=== PATIENT | male | born 1975 | race Caucasian/White ===

== ENCOUNTER 2022-08-26 16:00 | Inpatient (IN) | payer MEDICARE, OTHER ==
[~2022-08-26] VITALS: Ht 172.7 cm; Wt 104.3 kg
--- NOTE | 2022-08-26 16:00 | NUR ---
BIBRA 89 FOR SUDDEN ONSET CHEST PAIN WHILE WORKING. 325 ASPIRIN AND NITRO X1 GIVEN FEDERAL APPELLATE CLERK WITH MINIMAL RELIEF. PT STATED THAT HIS PAIN WAS INITIALLY 9/10 NON RADIATING AND FELT PRESSURE/TIGHTNESS ON AND OFF AND CURRENTLY 7/10 PAIN. PT ATTACHED TO MONITOR. AWAITING MD ORDERS.
--- NOTE | 2022-08-26 16:18 | NUR ---
IV ESTABLISHED L AC 20G. LABS DRAWN AND SENT.
--- NOTE | 2022-08-26 16:21 | NUR ---
COVID TEST COLLECTED AND SENT
[2022-08-26 16:36] LABS: BASOPHILS # (AUTO) 0.1 K/uL (0.0-0.2); BASOPHILS % (AUTO) 0.6 % (0.0-2.0); EOSINOPHILS % (AUTO) 1.6 % (0.0-6.0); HEMATOCRIT 44 % (39-51); HEMOGLOBIN 14.3 g/dL (13.5-17.5); LYMPHOCYTES # (AUTO) 2.1 K/uL (0.8-4.8); LYMPHOCYTES % (AUTO) 21.2 % (20.0-44.0); MEAN CORPUSCULAR HGB CONC 33 g/dl (31.0-36.0); MEAN CORPUSCULAR VOLUME 88 fL (80-96); MONOCYTES # (AUTO) 0.7 K/uL (0.1-1.30); MONOCYTES % (AUTO) 6.7 % (2.0-12.0); NEUTROPHILS # (AUTO) 6.9 K/uL (1.8-8.9); NEUTROPHILS % (AUTO) 69.9 % (43.0-81.0); PLATELET COUNT (AUTO) 218 K/uL (150-450); RED BLOOD CELL COUNT(AUTO) 4.97 MIL/uL (4.5-6.0); WHITE BLOOD COUNT (AUTO) 9.9 K/uL (4.3-11.0)
[2022-08-26] MEDS ORDERED: FURO40TA5 PO (16:48)
[2022-08-26] MEDS ORDERED: DICL100G34 TD (16:48)
[2022-08-26] MEDS ORDERED: ATOR40TA PO (16:48)
[2022-08-26] MEDS ORDERED: IBUP-1955 PO (16:48)
[2022-08-26] MEDS ORDERED: LISI20TA30 PO (16:48)
[2022-08-26] MEDS ORDERED: DOXY100C2 PO (16:48)
[2022-08-26] MEDS ORDERED: APIX5TAB PO (16:48)
[2022-08-26 17:17] LABS: ALANINE AMINOTRANSFERASE 19 U/L (12-78); ALBUMIN 3.1 g/dL (3.4-5.0); ALKALINE PHOSPHATASE 64 U/L (46-116); ASPARTATE AMINOTRANSFERASE 24 U/L (15-37); BILIRUBIN,DIRECT 0.2 mg/dL (0.0-0.2); BILIRUBIN,TOTAL 0.7 mg/dL (0.2-1.0); CALCIUM, SERUM 8.6 mg/dL (8.5-10.1); CARBON DIOXIDE 26 mmol/L (21-32); CHLORIDE 102 mmol/L (98-107); CREATININE 1.5 mg/dL (0.6-1.3); GLUCOSE 84 mg/dL (74-106); POTASSIUM 3.6 mmol/L (3.5-5.1); SODIUM SERUM 138 mmol/L (136-145); UREA NITROGEN, BLOOD 28 mg/dL (7-18)
[2022-08-26] MEDS ORDERED: ASPIRIN 81 MG TAB.CHEW PO ONE (19:30)
[2022-08-26] MEDS ORDERED: NITROGLYCERIN PACKET 1 GM PACKET TD ONE (19:30)
[2022-08-26] MEDS ORDERED: NITROGLYCERIN PACKET 1 GM PACKET ONE (19:32)
[2022-08-26] MEDS ORDERED: ASPIRIN 81 MG TAB.CHEW ONE (19:32)
[2022-08-26] MEDS ORDERED: LIDOCAINE VISCOUS 2% UD 15 ML UDC ONE (19:48)
[2022-08-26] MEDS ORDERED: DEXTROSE 50%-WATER 50 ML DISP.SYRIN IV PRN (23:00)
[2022-08-26] MEDS ORDERED: ZOLPIDEM TARTRATE 5 MG TABLET PO PRN (23:00)
[2022-08-26] MEDS ORDERED: ACETAMINOPHEN 325 MG TABLET PO PRN (23:00)
[2022-08-26] MEDS ORDERED: MAG HYDROX/AL HYDROX/SIMETH 30 ML UDC PO PRN (23:00)
[2022-08-26] MEDS ORDERED: IV NS 0.9% 1,000 ML IV PRN (23:00)
[2022-08-26] MEDS ORDERED: Z GUARD REMEDY 4 OZ OINT TP PRN (23:00)
[2022-08-26] MEDS ORDERED: MAGNESIUM HYDROXIDE 30 ML UDC PO PRN (23:00)
[2022-08-26] MEDS ORDERED: hydrALAZINE HCL IV 20 MG VIAL IV PRN (23:00)
[2022-08-26] MEDS ORDERED: ONDANSETRON HCL/PF 4 MG/2 ML VIAL IVP PRN (23:00)
[2022-08-26] MEDS ORDERED: NITROGLYCERIN 0.4 MG/TAB BOTTLE SL ONE (23:30)
[2022-08-27] VITALS (7 sets, daily range): BP systolic 128–150; BP diastolic 75–99
--- NOTE | 2022-08-27 02:22 | NUR ---
REPORT GIVEN TO BRONWYN WHITE FOR BIN
--- NOTE | 2022-08-27 02:47 | NUR ---
PT TRANSFERRED TO ROOM 307-1 ON CARDIAC PER ACLS IN STABLE CONDITION
--- NOTE | 2022-08-27 02:50 | NUR ---
TELERN RECEIVED FROM ER VIA SANDOVAL A 46 Y/O MALE WITH DX OF CP WHILE WORKING [employer] BY HEADACHE. STATED NO CP SINCE HE WAS GIVEN NITRO AND ASA. NO SOB. TROP NEGATIVE, OTHER TEST NEGATIVE, PER ER WILL BE ADMITTED UNDER OBSERVATION BASED ON MEDICAL HISTORY. ORIENTED TO ROOM FACILITIES, APPEARS TO BE DEPRESSED.HAS LEFT SIDED WEAKNESS FROM OLD CVA, WOUNDS BOTH FEET AND LEFT UPPER THIGH. STATED SEES WOUND CLINIC AT [facility]. MARKED SUNBURNS ON FACE AND LEFT ARM STATED FROM HIS WORK. PROVIDED FOOD STATED TENDS TO BE HYPOGLYCEMIC CHECKED BLOOD SUGAR WAS 77. LATE SNACKS PROVIDED ATE FAIRLY. PRESENT IVF NS AT 75 CC/HR INFUSING WELL VIA LEFT AC. SAFETY PRECAUTIONS EMPHASIZED, CALL LIGHT USE REVIEWED WITH PATIENT WELL UNDERSTOOD. KEPT COMFORTABLE. BOTH FEET DRESSINGS CHANGED ELEVATED ON PILLOWS.SR ON THE MONITOR. CLOSELY WATCHED.
[2022-08-27 06:37] LABS: BASOPHILS % (AUTO) 0.6 % (0.0-2.0); EOSINOPHILS % (AUTO) 2.8 % (0.0-6.0); HEMATOCRIT 40 % (39-51); HEMOGLOBIN 13.3 g/dL (13.5-17.5); LYMPHOCYTES # (AUTO) 1.6 K/uL (0.8-4.8); LYMPHOCYTES % (AUTO) 23.2 % (20.0-44.0); MEAN CORPUSCULAR HGB CONC 34 g/dl (31.0-36.0); MEAN CORPUSCULAR VOLUME 87 fL (80-96); MONOCYTES # (AUTO) 0.5 K/uL (0.1-1.30); NEUTROPHILS # (AUTO) 4.6 K/uL (1.8-8.9); NEUTROPHILS % (AUTO) 66.4 % (43.0-81.0); PLATELET COUNT (AUTO) 192 K/uL (150-450); RED BLOOD CELL COUNT(AUTO) 4.54 MIL/uL (4.5-6.0); WHITE BLOOD COUNT (AUTO) 6.9 K/uL (4.3-11.0)
--- NOTE | 2022-08-27 06:50 | NUR ---
TELERN REMAINS SR ON THE MONITOR. CP FREE. PRESENT IVF INFUSING WELL. NO NEEDS FOR NOW. CONTINUED MONITORING.
--- NOTE | 2022-08-27 07:00 | NUR ---
SIDE GLUER OPENING NOTES RECEIVED PATIENT AWAKE IN BED, ON ROOM AIR NO S/S OF RESPIRATORY DISTRESS. A/Ox4, ABLE TO MAKE NEEDS KNOWN. ON TELE MONITORING SHOWING SINUS RHYTHM HR 70. NO COMPLAINT OF CHEST PAIN OR CARDIAC DISTRESS. IV ACCESS LAC #20G WITH NS RUNNING AT 75 ML/HR. INTACT AND PAPNET. AMB WITH STAND BY ASSIST, PATIENT IS CONTINENT USES URINAL. SKIN ISSUES: L UPPER THIGH ABRASION, FACIAL BURN, BILATERAL FOOT WOUNDS. SAFETY MEASURES IN PLACE: BED LOCKED AND IN LOWEST POSITION, HOB ELEVATED, SIDE RAILS UP x2, CALL LIGHT WITHIN REACH. WILL CONTINUE TO MONITOR.
[2022-08-27 07:27] LABS: THYROID STIMULATING HORMONE 1.035 uIU/mL (0.358-3.74)
[2022-08-27] MEDS: BLOOD SUGAR DIAGNOSTIC 1 EACH STRIP IN SCH ×4 (07:30→21:21)
[2022-08-27 07:36] LABS: CALCIUM, SERUM 8.2 mg/dL (8.5-10.1); CREATININE 1.2 mg/dL (0.6-1.3); MAGNESIUM 1.6 mg/dL (1.8-2.4); PHOSPHORUS 3.4 mg/dL (2.5-4.9); POTASSIUM 3.3 mmol/L (3.5-5.1)
[2022-08-27] MEDS: FUROSEMIDE 40 MG TABLET PO SCH (09:09)
[2022-08-27] MEDS: APIXABAN 5 MG TABLET PO SCH ×2 (09:09→16:36)
[2022-08-27] MEDS: ASPIRIN 81 MG TAB.CHEW PO SCH (09:11)
[2022-08-27] MEDS: PANTOPRAZOLE 40 MG VIAL IV SCH (09:12)
[2022-08-27] MEDS ORDERED: Magnesium 1GM/D5W 100ML PREMIX 100 ML IV SCH (10:00)
[2022-08-27] MEDS ORDERED: POTASSIUM CHLORIDE 20 MEQ TAB.PRT.SR PO ONE (10:00)
[2022-08-27] MEDS ORDERED: METOPROLOL TARTRATE 50 MG TABLET PO ONE (10:30)
[2022-08-27] MEDS ORDERED: MAGNESIUM OXIDE 400 MG TABLET PO ONE (11:00)
[2022-08-27] MEDS ORDERED: POTASSIUM CHLORIDE 20 MEQ TAB.PRT.SR PO SCH (11:00)
--- NOTE | 2022-08-27 11:30 | NUR ---
RN NOTES PATIENT LEFT FOR CTCA VIA WHEELCHAIR ACCOMPANIED BY ONE ENTRY OPERATOR.
[2022-08-27] MEDS ORDERED: IOHEXOL-350 100 ML VIAL IV ONE (11:48)
[2022-08-27] MEDS ORDERED: METOPROLOL TARTRATE INJ 5 MG/5 ML AMPUL ONE ×2 (11:48→12:20)
[2022-08-27] MEDS ORDERED: NITROGLYCERIN 0.4 MG/TAB BOTTLE ONE (11:48)
[2022-08-27] MEDS ORDERED: CT SWABBABLE VALVE TRANS SET 1 EA INFUS.SET MC ONE (11:48)
[2022-08-27] MEDS ORDERED: IV NS 0.9% 250 ML IV ONE (11:49)
[2022-08-27] MEDS: METOPROLOL TARTRATE INJ 5 MG/5 ML AMPUL IVP PRN ×6 (12:10→12:35)
[2022-08-27] MEDS ORDERED: NITROGLYCERIN 0.4 MG/TAB BOTTLE SL ONE (12:30)
--- NOTE | 2022-08-27 12:32 | NUR ---
AFTER GIVING MULTIPLE DOSE OF METROPOLOL IV PT HEART RATE REMAINS AT 80 TO 90 BPM. V/S STABLE. PER DR. CARDOZO AND HOLD CTCA PROCEDURE WILL TRY AGAIN AFTER 24HRS.
--- NOTE | 2022-08-27 13:00 | NUR ---
RN NOTES PATIENT RETURNED TO UNIT, CTCA WAS UNSUCCESSFUL, CT WILL TRY AGAIN TOMORROW.
[2022-08-27] MEDS ORDERED: hydrALAZINE HCL 50 MG TABLET PO ONE (16:30)
[2022-08-27] MEDS: NITROGLYCERIN 0.4 MG/TAB BOTTLE SL PRN ×3 (16:33→16:52)
--- NOTE | 2022-08-27 18:40 | NUR ---
WALKING DRAGLINE OILER CLOSING NOTES PATIENT AWAKE IN BED, STABLE ON ROOM AIR NO S/S OF RESPIRATORY DISTRESS. A/Ox4, ABLE TO MAKE NEEDS KNOWN. ON TELE MONITORING SHOWING SINUS RHYTHM HR 70. NO COMPLAINT OF CHEST PAIN OR CARDIAC DISTRESS. IV ACCESS LAC #20G WITH NS RUNNING AT 75 ML/HR. INTACT AND PATENT. AMB WITH STAND BY ASSISST, PATIENT IS CONTINENT USES URINAL AND BATHROOM. SKIN ISSUES: L UPPER THIGH ABRASION, FACIAL BURN, BILATERAL FOOT WOUNDS. ALL PRESCRIBED MEDICATION ADMINISTERED. SAFETY MEASURES MAINTAINED: BED LOCKED AND IN LOWEST POSITION, HOB ELEVATED, SIDE RAILS UP x2, CALL LIGHT WITHIN REACH. WILL ENDORSE TO NEXT SHIFT ANY BIN.
--- NOTE | 2022-08-27 19:30 | NUR ---
METAL SPINNER OPENING NOTES PATIENT AWAKE IN BED. VITAL SIGNS STABLE. SpO2= 99% ON ROOM AIR. NO S/S OF DYSPNEA OR SOB. A/O x 4. ABLE TO MAKE NEEDS KNOWN. TELE MONITOR SHOWS SINUS RHYTHM WITH HR 92. NO COMPLAINTS OF CHEST PAIN OR CARDIAC DISTRESS. IV ACCESS TO LAC #20G WITH NS RUNNING AT 75 ML/HR. IV IS INTACT AND PATENT. STAND BY ASSIST FOR AMBULATION. PATIENT IS CONTINENT AND USES URINAL AND BATHROOM. SKIN ISSUES: L UPPER THIGH ABRASION, FACIAL BURN, BILATERAL FOOT WOUNDS. SAFETY MEASURES IN PLACE: BED LOCKED AND IN LOWEST POSITION, HOB ELEVATED, SIDE RAILS UP x2, CALL LIGHT WITHIN REACH. WILL CONTINUE TO MONITOR THROUGHOUT SHIFT.
[2022-08-27] MEDS ORDERED: ATORVASTATIN 40 MG TABLET PO SCH (22:00)
--- NOTE | 2022-08-27 22:10 | NUR ---
PATIENT ON TELE MONITOR WITH NORMAL SINUS RHYTHM 92 BPM
[2022-08-28] VITALS: BP 145/92
[2022-08-28] MEDS ORDERED: HYDROCODONE/APAP 5/325MG TABLET PO PRN
[2022-08-28] MEDS: INSULIN REGULAR, HUMAN 100 UNIT/ML 3 ML VIAL SQ PRN ×2 (01:28→06:44)
[2022-08-28 04:00] VITALS: BP 123/73
[2022-08-28 06:09] LABS: BASOPHILS % (AUTO) 0.5 % (0.0-2.0); EOSINOPHILS % (AUTO) 2.6 % (0.0-6.0); HEMATOCRIT 42 % (39-51); HEMOGLOBIN 14.3 g/dL (13.5-17.5); LYMPHOCYTES # (AUTO) 2.3 K/uL (0.8-4.8); LYMPHOCYTES % (AUTO) 27.5 % (20.0-44.0); MEAN CORPUSCULAR HGB CONC 34 g/dl (31.0-36.0); MEAN CORPUSCULAR VOLUME 87 fL (80-96); MONOCYTES # (AUTO) 0.7 K/uL (0.1-1.30); NEUTROPHILS # (AUTO) 5.1 K/uL (1.8-8.9); NEUTROPHILS % (AUTO) 61.4 % (43.0-81.0); PLATELET COUNT (AUTO) 204 K/uL (150-450); RED BLOOD CELL COUNT(AUTO) 4.88 MIL/uL (4.5-6.0); WHITE BLOOD COUNT (AUTO) 8.3 K/uL (4.3-11.0)
[2022-08-28 06:26] LABS: ALBUMIN 2.8 g/dL (3.4-5.0); BILIRUBIN,TOTAL 0.4 mg/dL (0.2-1.0); CALCIUM, SERUM 8.4 mg/dL (8.5-10.1); CREATININE 1.1 mg/dL (0.6-1.3); MAGNESIUM 1.8 mg/dL (1.8-2.4); PHOSPHORUS 3.9 mg/dL (2.5-4.9); POTASSIUM 3.7 mmol/L (3.5-5.1); TOTAL PROTEIN, SERUM 6.4 g/dL (6.4-8.2)
[2022-08-28] MEDS: BLOOD SUGAR DIAGNOSTIC 1 EACH STRIP IN SCH (06:41)
--- NOTE | 2022-08-28 07:02 | NUR ---
MEDICAL SECRETARY RECEPTIONIST CLOSING NOTES PATIENT ASLEEP IN BED. A/O x 4 AND ABLE TO MAKE NEEDS KNOWN. TELE MONITOR SHOWS SINUS RHYTHM WITH HR 76. NO COMPLAINTS OF CHEST PAIN DURING THE MACHINE PECAN PICKER. IV ACCESS TO LAC #20G WITH NS RUNNING AT 75 ML/HR. LINE IS INTACT AND PATENT. FLUIDS RUNNING INTERMITTENTLY DURING NIGHT PER MD ORDER TO BE CAREFUL DUE TO HISTORY OF CHF AND UNKNOWN EJECTION FRACTION. PATIENT TOLERATING FLUIDS WITHOUT DIFFICULTY. NEW ORDER RECEIVED FOR HYDROCODONE 5/325; 1 TAB BY MOUTH Q 6 HR PRN FOR MODERATE PAIN. PATIENT IS CONTINENT USES URINAL AND BATHROOM. SKIN ISSUES: L UPPER THIGH ABRASION, FACIAL BURN, BILATERAL FOOT WOUNDS. ALL PRESCRIBED MEDICATION ADMINISTERED. SAFETY MEASURES MAINTAINED: BED LOCKED AND IN LOWEST POSITION, HOB ELEVATED, SIDE RAILS UP x2, CALL LIGHT WITHIN REACH. WILL ENDORSE TO NEXT SHIFT FOR BIN.
--- NOTE | 2022-08-28 07:15 | NUR ---
CLINICAL TRANSPLANT COORDINATOR OPENING NOTES PATIENT AWAKE IN BED. A/O x 4. ABLE TO MAKE NEEDS KNOWN. ON ROOM AIR WITH EQUAL AND UNLABORED BREATHING, NO SIGNS OF DISTRES. PATIENT ON TELE MONITOR SHOWS SINUS RHYTHM WITH HR 80'S. NO COMPLAINTS OF CHEST PAIN OR CARDIAC DISTRESS. WITH IV ACCESS TO LAC #20G WITH NS RUNNING AT 75 ML/HR INFUSING WELL. SAFETY MEASURES IN PLACE: BED LOCKED AND IN LOWEST POSITION, HOB ELEVATED, SIDE RAILS UP x2, CALL LIGHT WITHIN REACH. WILL CONTINUE TO MONITOR.
--- NOTE | 2022-08-28 08:01 | NUR ---
WOUND CARE CONSULT: PT PRESENTS WITH SCARRING AND DRY LESIONS TO FEET AND LOWER LEGS WELL DRY ABRASIONS TO FACE AND TO LEFT THIGH, PRESENT ON ADMISSION. PT REFUSES PODIATRY CONSULT AT THIS TIME AND STATES HE IS FOLLOWING UP WITH DR MURPHY AT [facility]. PT IS INDEPENDENT WITH BED MOBILITY AND IS CONTINENT. MD IN AGREEMENT WITH PLAN OF CARE.
[2022-08-28 08:35] VITALS: BP 136/91
[2022-08-28] MEDS: APIXABAN 5 MG TABLET PO SCH (09:33)
[2022-08-28] MEDS: FUROSEMIDE 40 MG TABLET PO SCH (09:39)
[2022-08-28] MEDS: PANTOPRAZOLE 40 MG VIAL IV SCH (09:40)
[2022-08-28] MEDS: ASPIRIN 81 MG TAB.CHEW PO SCH (09:40)
--- NOTE | 2022-08-28 11:00 | NUR ---
ORTHOPAEDIC SURGEON NOTE PER FRAME STRAIGHTENER, PATIENT'S HR IS STILL ELEVATED, UNABLE TO DO CTCA. PATIENT VERBALIZED INTENTION OF GOING AMA BECAUSE HE HAD TO ATTENT TO SOME THINGS AT HOME. MD REMINDED OF RECONCILING ANTIBIOTIC, TAKEN BY PATIENT AT HOME. WILL CONTINUE TO MONITOR PATIENT. IN STABLE CONDITION.
[2022-08-28] MEDS ORDERED: METOPROLOL TARTRATE 50 MG TABLET PO SCH (12:00)
--- NOTE | 2022-08-28 12:00 | NUR ---
CINDY MS NOTES Patient signed the AMA form and was discharged. Patient verbalized his understanding of the risk. notified. IV access has been removed from the patient. Patient is in stable condition, no signs and symptoms of distress. Addendum: 08/28/22 at 1531 by MAEVE LIVINGSTON RN ADDENDUM: PATIENT SIGNED AMA AND INVENTORY FORMS. REFUSED TO HAVE PICTURES TAKEN REGARDING SKIN ISSUES.
[2022-08-28] MEDS ORDERED: PROSOURCE / PROSTAT (PYXIS) 30 ML UDC GT SCH (13:00)
[2022-08-29] MEDS ORDERED: PANTOPRAZOLE 40 MG TABLET.DR PO SCH (07:30)
== END 2022-08-28 16:23 | disposition left against medical advice (07) | DRG 302 ==
LOC: ER 16:03 → TELE 08-27 00:51
PROVIDERS: ADMIT Nurse Practitioner Acute Care; ATTEND Internal Medicine
DX: I25.10 Atherosclerotic heart disease of native coronary artery without angina pectoris (principal); N17.0 Acute kidney failure with tubular necrosis; I69.354 Hemiplegia and hemiparesis following cerebral infarction affecting left non-dominant side; E11.9 Type 2 diabetes mellitus without complications; E66.9 Obesity, unspecified; E83.42 Hypomagnesemia; E87.6 Hypokalemia; I25.2 Old myocardial infarction; I50.9 Heart failure, unspecified; I11.0 Hypertensive heart disease with heart failure; Z68.35 Body mass index [BMI] 35.0-35.9, adult; Z79.01 Long term (current) use of anticoagulants; Z87.891 Personal history of nicotine dependence; Z20.822 Contact with and (suspected) exposure to COVID-19
CPT/HCPCS: 36415; 71045-TC; 80048-TC; 80053-TC; 80061-TC; 80076-TC; 82962-TC; 83735-TC; 84100-TC; 84443-TC; 84484-TC; 85025-TC; 87081-TC; 93307-TC; A6253; A6403; C9113; C9803; G0378; J1815; J3490; J7030; J7050; Q9967